=== PATIENT | female | born 1970 | race Caucasian/White ===

== ENCOUNTER 2018-01-08 21:04 | Emergency (ER) | payer OTHER ==
[~2018-01-08] VITALS: Ht 167.6 cm; Wt 86.2 kg
[2018-01-08] MEDS ORDERED: TIROSINT88 MCG PO (21:12)
[2018-01-08] MEDS ORDERED: TOPROL XL25 MG PO (21:13)
[2018-01-08 21:24] LABS: ABSOLUTE EOSINOPHILS 0.2 thou/uL (0.0-0.7); ABSOLUTE LYMPHOCYTES 1.7 thou/uL (0.8-5.3); ABSOLUTE MONOCYTES 0.6 thou/uL (0.0-1.2); ABSOLUTE NEUTROPHILS 9.8 thou/uL (1.6-8.1); BASOPHILS 0.3 %; EOSINOPHILS 1.2 %; HEMOGLOBIN 14.8 gm/dL (12.0-15.0); LYMPHOCYTES 13.7 %; MCH 30.2 pg (26.0-34.0); MCHC 33.8 g/dL (28.0-37.0); MCV 89.5 fL (80.0-100.0); MONOCYTES 4.8 %; NUCLEATED RBCS 0 /100WBC; PLATELET COUNT* 289 thou/uL (150-400); RBC 4.92 mil/uL (4.20-5.00); RDW-CV 12.7 % (10.5-14.5); WBC 12.2 thou/uL (4.0-11.0)
[2018-01-08 21:31] LABS: ANION GAP 11 mmol/L (7-16); BUN 19 mg/dL (7-18); CHLORIDE 103 mmol/L (98-107); CO2 27 mmol/L (21-32); CREATININE 1.1 mg/dL (0.6-1.3); GLUCOSE 128 mg/dL (70-99); POTASSIUM 3.7 mmol/L (3.5-5.1); SODIUM 141 mmol/L (136-145)
[2018-01-08 21:34] LABS: PROTIME 10.2 Seconds (9.20-11.50)
[2018-01-08 21:42] LABS: ALBUMIN 4.3 g/dL (3.4-5.0); ALKALINE PHOSPHATASE 88 U/L (46-116); LIPASE 192 U/L (73-393); NT-PRO BRAIN NAT PEPTIDE 35 pg/mL (<300); SGOT 31 U/L (15-37); SGPT 40 U/L (30-65); TOTAL BILIRUBIN 0.5 mg/dL (<0.1-1.0); TOTAL PROTEIN 8.5 g/dL (6.4-8.2); TROPONIN-I LEVEL <0.06 ng/mL (<0.06)
[2018-01-09] MEDS ORDERED: PEPCID20 MG PO (00:06)
[2018-01-09] MEDS ORDERED: HYDROCODONE-AP1 EAC6 PO (00:06)
[2018-01-09] MEDS ORDERED: ZOFRAN ODT4 MG PO (00:06)
[2018-01-09 00:31] VITALS: BP 116/74
--- NOTE | 2018-01-10 15:49 | EKG ---
[place] [address] ELECTROCARDIOGRAM REPORT Name: CLAUDIO DONALDSON Room: [facility]#: [id number] Admission: 01/08/18 Attend Phys: Discharge: 01/09/18 Date of : 68 Report #: [id number] THIS REPORT FOR: //name// [place] [facility] Test Date: 2018-01-08 Test Time: 21:07:48 Pat Name: CLAUDIO DONALDSON Department: Room: Gender: F Python Programmer: GEOFFREY : 1970 Requested By: Debbie Weathers Order Number: [id number] MD: Scott Hernandez Measurements Intervals [place] Rate: 114 P: 65 CA: 131 QRS: 62 QRSD: 79 T: 32 QT: 325 QTc: 448 Interpretive Statements Sinus tachycardia Baseline wander in lead(s) V3 No previous ECG available for comparison Electronically Signed On 01-10-2018 15:48:39 CDT by Scott Hernandez [email or web address] <ELECTRONICALLY SIGNED> By: Scott Hernandez MD, [facility] 01/10/18 1548 [id number] Scott Hernandez MD, FACC /EPI
== END 2018-01-09 00:35 | disposition home or self-care (01) ==
LOC: M.ERS 21:04
PROVIDERS: Emergency Medicine
DX: F41.9 Anxiety disorder, unspecified (principal); R11.10 Vomiting, unspecified; R19.7 Diarrhea, unspecified; R07.89 Other chest pain; Z88.5 Allergy status to narcotic agent; Z90.710 Acquired absence of both cervix and uterus; Z90.49 Acquired absence of other specified parts of digestive tract

== ENCOUNTER → 2018-04-20 | Outpatient (CLI) | payer OTHER ==
[~2018-04-20] MED LIST: HYDROCODONE-AP1 EAC6 PO; PEPCID20 MG PO; TIROSINT88 MCG PO; TOPROL XL25 MG PO; ZOFRAN ODT4 MG PO
== END ==
LOC: M.ULTRA 14:43
DX: T14.8XXA Other injury of unspecified body region, initial encounter (principal); M79.662 Pain in left lower leg; M79.89 Other specified soft tissue disorders; R60.0 Localized edema; X58.XXXA Exposure to other specified factors, initial encounter; Y93.89 Activity, other specified; Y92.89 Other specified places as the place of occurrence of the external cause; Y99.8 Other external cause status

== ENCOUNTER → 2018-06-21 | Outpatient (CLI) | payer OTHER | LOC: M.RAD 16:36 | DX: M25.421 Effusion, right elbow (principal) ==

== ENCOUNTER → 2018-06-23 | Outpatient (CLI) | payer OTHER ==
--- NOTE | 2018-07-02 20:56 | SLEEP ---
[address] [address] SLEEP STUDY REPORT Name: CLAUDIO DONALDSON Room: [facility]#: [id number] Admission: 06/23/18 Attend Phys: Ivory Dahl RN Discharge: Date of : 68 Report #: [id number] THIS REPORT FOR: //name// CC: Aram Dahl This study has been reviewed in its entirety by a board certified sleep specialist DATE OF SERVICE: 06/24/2018 HOME SLEEP STUDY The patient is 48 years old who weighs 200 pounds and is 56 inches tall. The patient underwent home sleep study performed at [facility]. Total recording time was 503 minutes. During the night study, the patient had 22 obstructive apneas, 2 central apneas and no mixed apneas. The patient's apnea-hypopnea index was 6 per hour with a supine index of 6 per hour as well. Nocturnal oximetry study revealed an average oxygen saturation of 92% with a lowest of 84%. 34.7 minutes were spent in oxygen saturation less than 90%. The patient's mean heart rate was 71 beats per minute with a maximum of 109 beats per minute during sleep. IMPRESSION: 1. Mild sleep apnea-hypopnea syndrome at an apnea-hypopnea index of 6 per hour. 2. Nocturnal hypoxia secondary to obstructive sleep apnea. RECOMMENDATIONS: 1. The patient has only mild sleep apnea. I would recommend weight loss as the initial form of treatment. 2. If the patient continues to remain symptomatic or has other comorbid conditions, then consider treating the patient's sleep apnea with either an oral appliance or a trial of CPAP titration. 3. Avoid [employer] depressants. 4. Cautioned regarding driving until symptoms of sleep apnea resolve with the above recommendations. <ELECTRONICALLY SIGNED> By: Donavon Alfredo MD 07/02/18 2056 [id number] Alfredo MD /nt
== END ==
LOC: M.SLEEPLAB 10:00
DX: G47.33 Obstructive sleep apnea (adult) (pediatric) (principal); R09.02 Hypoxemia; R00.2 Palpitations; R53.83 Other fatigue; R06.83 Snoring

== ENCOUNTER 2018-08-09 08:41 | Emergency (ER) | payer OTHER ==
[~2018-08-09] VITALS: Ht 167.6 cm; Wt 90.7 kg
[2018-08-09] MEDS ORDERED: ARMOUR THYROID90 M1 PO (08:53)
[2018-08-09 09:04] LABS: ABSOLUTE EOSINOPHILS 0.3 thou/uL (0.0-0.7); ABSOLUTE LYMPHOCYTES 3.1 thou/uL (0.8-5.3); ABSOLUTE MONOCYTES 0.5 thou/uL (0.0-1.2); ABSOLUTE NEUTROPHILS 2.4 thou/uL (1.6-8.1); BASOPHILS 0.6 %; EOSINOPHILS 4.2 %; HEMATOCRIT 40.9 % (37.0-47.0); HEMOGLOBIN 14.1 gm/dL (12.0-15.0); LYMPHOCYTES 49.3 %; MCHC 34.3 g/dL (28.0-37.0); MCV 90.2 fL (80.0-100.0); MONOCYTES 7.4 %; MPV 7.8 fl. (7.2-11.1); NUCLEATED RBCS 0 /100WBC; PLATELET COUNT* 258 thou/uL (150-400); POLYS 38.5 %; RBC 4.54 mil/uL (4.20-5.00); RDW-CV 12.5 % (10.5-14.5); WBC 6.2 thou/uL (4.0-11.0)
[2018-08-09 09:13] LABS: PROTIME 10.3 Seconds (9.20-11.50)
[2018-08-09 09:20] LABS: CALCIUM 8.5 mg/dL (8.5-10.1); CREATININE 0.9 mg/dL (0.6-1.3)
[2018-08-09 09:25] LABS: ALBUMIN 3.6 g/dL (3.4-5.0); TOTAL BILIRUBIN 0.5 mg/dL (<0.1-1.0); TOTAL PROTEIN 7.3 g/dL (6.4-8.2)
[2018-08-09] MEDS ORDERED: BUTALB-APAP-CA1 EACH PO (09:56)
[2018-08-09] MEDS ORDERED: ZOFRAN ODT4 MG SUBLING (09:56)
[2018-08-09 10:12] VITALS: BP 120/65
== END 2018-08-09 10:13 | disposition home or self-care (01) ==
LOC: M.ERS 08:41
PROVIDERS: Family Medicine
DX: R51 Headache (principal); R42 Dizziness and giddiness; R11.0 Nausea; Z90.49 Acquired absence of other specified parts of digestive tract; Z90.710 Acquired absence of both cervix and uterus; Z88.5 Allergy status to narcotic agent; Z98.890 Other specified postprocedural states